=== PATIENT | male | born 1970 | race Caucasian/White ===

== ENCOUNTER 2017-02-26 13:26 | Emergency (ER) | payer OTHER ==
[~2017-02-26] VITALS: Ht 182.9 cm; Wt 86.0 kg
[~2017-02-26 13:26] MED LIST: PERC10TA27 PO; VENTAER INH
[2017-02-26 13:28] VITALS: BP 128/79; PULSE 67; RESP 16; TEMP 98.3; O2SAT 98
--- NOTE | 2017-02-26 13:42 | PD ---
Physical Exam Time Seen by Provider: 13:37 Narrative Pt presents to the ED for evaluation of right leg pain for 7 years. States he has a history of chronic right leg pain secondary to traumatic injury and reconstructive surgery. States he did fall this morning onto his right side because his knee buckled which happens to him occasionally. States he just moved to the area and has been out of his Oxycodone for 5 days. VSS. Awaiting bed placement. Data Data Last Documented VS Vital Signs Date Time Temp Pulse Resp B/P Pulse Ox O2 Delivery O2 Flow Rate FiO2 02/26/17 13:28 98.3 67 16 128/79 98 Room Air MDM Supervised Visit with TAYLOR: Rubia Cowan Feb 26, 2017 13:42
[2017-02-26] MEDS ORDERED: IBUP800T23 PO (15:00)
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
== END 2017-02-26 15:42 | disposition left against medical advice (07) ==
LOC: NEPK 13:26
DX: M25.561 Pain in right knee (principal); G89.29 Other chronic pain; M51.36 Other intervertebral disc degeneration, lumbar region; G47.30 Sleep apnea, unspecified; F17.210 Nicotine dependence, cigarettes, uncomplicated; W18.39XA Other fall on same level, initial encounter; Y93.9 Activity, unspecified; Y92.9 Unspecified place or not applicable
CPT/HCPCS: 99281